=== PATIENT | female | born 1975 | race Two or more races ===

== ENCOUNTER 2022-09-28 02:07 | Emergency (ER) | payer MEDICAID ==
[~2022-09-28] VITALS: Ht 165.1 cm; Wt 61.4 kg
[2022-09-28] MEDS ORDERED: ONDANSETRON HCL 4 MG TABLET PO ONE (04:45)
[2022-09-28] MEDS ORDERED: ACETAMINOPHEN 500 MG TABLET PO ONE (04:45)
[2022-09-28] MEDS ORDERED: MAG HYDROX/AL HYDROX/SIMETH ES 30 ML SUSPENSION UDCUP PO ONE (04:45)
[2022-09-28 04:52] LABS: BASOPHILS % (AUTO) 0.4 % (0.0-2.0); EOSINOPHILS % (AUTO) 0.2 % (1.0-6.0); HEMATOCRIT 39.5 % (36-46); HEMOGLOBIN 12.9 g/dL (12.0-16.0); LYMPHOCYTES # (AUTO) 1.4 K/uL (1.0-4.8); LYMPHOCYTES % (AUTO) 13.2 % (22.0-44.0); MEAN CORPUSCULAR HEMOGLOBIN 26.9 pg (26.0-34.0); MEAN CORPUSCULAR HGB CONC 32.6 G/dL (31.0-37.0); MEAN CORPUSCULAR VOLUME 82 fL (80-100); MONOCYTES # (AUTO) 0.8 K/uL (0.1-1.0); MONOCYTES % (AUTO) 8.1 % (2.0-9.0); NEUTROPHILS % (AUTO) 78.1 % (40.0-70.0); PLATELET COUNT (AUTO) 249 K/uL (150-450); RED BLOOD CELL COUNT(AUTO) 4.79 MIL/uL (4.00-5.20)
[2022-09-28 05:03] LABS: ANION GAP 4 mmol/L (8-16); CALCIUM, TOTAL 9.3 mg/dL (8.8-10.5); CARBON DIOXIDE 30 mmol/L (22-29); CHLORIDE 104 mmol/L (98-107); CREATININE 0.67 mg/dL (0.60-1.30); GLUCOSE,RANDOM 114 mg/dL (70-110); POTASSIUM 4.1 mmol/L (3.5-5.1); SODIUM SERUM 138 mmol/L (136-145); UREA NITROGEN, BLOOD 13 mg/dL (7-18)
[2022-09-28 05:06] LABS: GLOMERULAR FILTR. RATE CALC > 60 mL/min (>60)
[2022-09-28 05:10] LABS: ALANINE AMINOTRANSFERASE 118 U/L (12-78); ALBUMIN 3.9 g/dL (3.4-5.0); ALKALINE PHOSPHATASE 103 U/L (46-116); ASPARTATE AMINOTRANSFERASE 195 U/L (15-37); BILIRUBIN,TOTAL 0.6 mg/dL (0.1-1.0); LIPASE 277 U/L (73-393); TOTAL PROTEIN, SERUM 7.6 g/dL (6.4-8.2)
[2022-09-28 07:42] VITALS: BP 103/58
[2022-09-28] MEDS ORDERED: MAG30ORA11 PO (08:04)
[2022-09-28] MEDS ORDERED: ONDA-104 PO (08:04)
[2022-09-28] MEDS ORDERED: ACET-66 PO (08:04)
== END 2022-09-28 08:48 | disposition home or self-care (01) ==
LOC: EMS 02:07
DX: R10.10 Upper abdominal pain, unspecified (principal); K21.9 Gastro-esophageal reflux disease without esophagitis; F41.9 Anxiety disorder, unspecified; K80.80 Other cholelithiasis without obstruction; Z87.440 Personal history of urinary (tract) infections
CPT/HCPCS: 99285; 76700; 80053; 83690; 84703; 85025; 36415; 93005; Q0162

== ENCOUNTER 2022-12-31 15:32 | Emergency (ER) | payer SELFPAY ==
[~2022-12-31] VITALS: Ht 160 cm; Wt 59.5 kg
[~2022-12-31 15:32] MED LIST: ACET-66 PO; MAG30ORA11 PO; ONDA-104 PO
[2022-12-31] MEDS ORDERED: BACL10TA PO (17:24)
[2022-12-31] MEDS ORDERED: IBUP-1492 PO (17:25)
[2022-12-31] MEDS ORDERED: BACLOFEN 10 MG TABLET PO ONE (17:30)
[2022-12-31] MEDS ORDERED: LIDOCAINE 5% TRANSDERMAL PATCH TD ONE (17:30)
[2022-12-31] MEDS ORDERED: IBUPROFEN 600 MG TABLET PO ONE (17:30)
[2022-12-31 18:05] VITALS: BP 132/82
== END 2022-12-31 18:30 | disposition home or self-care (01) ==
LOC: EMS 15:32
DX: M54.50 Low back pain, unspecified (principal); F41.9 Anxiety disorder, unspecified; V98.8XXA Other specified transport accidents, initial encounter; Y93.89 Activity, other specified; Y92.89 Other specified places as the place of occurrence of the external cause; Y99.8 Other external cause status
CPT/HCPCS: 99284; Z7502; Z7610

== ENCOUNTER 2023-04-22 00:02 | Emergency (ER) | payer MEDICAID, OTHER ==
[~2023-04-22] VITALS: Ht 162.6 cm; Wt 65.0 kg
[~2023-04-22 00:02] MED LIST changes: +BACL10TA PO; +IBUP-1492 PO
[2023-04-22] MEDS ORDERED: ONDANSETRON HCL 4 MG/2 ML VIAL IVP ONE (00:15)
[2023-04-22] MEDS ORDERED: MORPHINE SULFATE 2 MG/ML SYRINGE IVP ONE (00:15)
[2023-04-22] MEDS ORDERED: SODIUM CHLORIDE 0.9% 1,000 ML IV ONE (00:15)
[2023-04-22] MEDS ORDERED: FAMOTIDINE 10 MG/ML 2 ML VIAL IVP ONE (00:15)
[2023-04-22] MEDS ORDERED: MAG HYDROX/AL HYDROX/SIMETH 30 ML SUSP UDCUP PO ONE (00:15)
[2023-04-22 00:44] LABS: BASOPHILS % (AUTO) 0.3 % (0.0-2.0); EOSINOPHILS % (AUTO) 0.8 % (1.0-6.0); HEMATOCRIT 39.3 % (36-46); HEMOGLOBIN 12.6 g/dL (12.0-16.0); LYMPHOCYTES # (AUTO) 1.8 K/uL (1.0-4.8); LYMPHOCYTES % (AUTO) 12.5 % (22.0-44.0); MEAN CORPUSCULAR HEMOGLOBIN 26.7 pg (26.0-34.0); MEAN CORPUSCULAR VOLUME 84 fL (80-100); MONOCYTES # (AUTO) 0.9 K/uL (0.1-1.0); MONOCYTES % (AUTO) 6.3 % (2.0-9.0); NEUTROPHILS # (AUTO) 11.2 K/uL (1.8-7.7); NEUTROPHILS % (AUTO) 80.1 % (40.0-70.0); PLATELET COUNT (AUTO) 234 K/uL (150-450); RED CELL DISTRIBUTION WIDTH 14.4 % (11.5-14.5)
[2023-04-22 00:54] LABS: ANION GAP 11 mmol/L (8-16); CALCIUM, TOTAL 7.5 mg/dL (8.8-10.5); CARBON DIOXIDE 25 mmol/L (22-29); CHLORIDE 104 mmol/L (98-107); CREATININE 0.56 mg/dL (0.60-1.30); GLOMERULAR FILTR. RATE CALC > 60 mL/min (>60); GLUCOSE,RANDOM 105 mg/dL (70-110); SODIUM SERUM 140 mmol/L (136-145)
[2023-04-22 00:59] LABS: ALANINE AMINOTRANSFERASE 41 U/L (12-78); ALBUMIN 3.5 g/dL (3.4-5.0); ALKALINE PHOSPHATASE 83 U/L (46-116); ASPARTATE AMINOTRANSFERASE 58 U/L (15-37); BILIRUBIN,TOTAL 0.3 mg/dL (0.1-1.0); LIPASE 101 U/L (73-393); PHOSPHORUS 2.9 mg/dL (2.5-4.9); TOTAL PROTEIN, SERUM 6.9 g/dL (6.4-8.2)
[2023-04-22 01:01] LABS: LACTIC ACID 1.2 mmol/L (0.4-2.0)
[2023-04-22] MEDS ORDERED: SODIUM CHLORIDE 0.9% 100 ML ONE (01:20)
[2023-04-22] MEDS ORDERED: IOHEXOL 350 MG/ML 100 ML VIAL ONE (01:20)
[2023-04-22 03:37] LABS: APPEARANCE,URINE CLEAR (CLEAR); BILIRUBIN,URINE NEGATIVE (NEGATIVE); GLUCOSE, URINE (UA) NEGATIVE (NEGATIVE); KETONES,URINE NEGATIVE (NEGATIVE); LEUKOCYTE ESTERASE ,URINE NEGATIVE (NEGATIVE); NITRATE,URINE NEGATIVE (NEGATIVE); OCCULT BLOOD,URINE NEGATIVE (NEGATIVE); PH,URINE 6.5 (5.0-8.0); PROTEIN,URINE 30-70 mg/dL (NEGATIVE); UROBILINOGEN,URINE <=1.0 mg/dL (<=1.0)
[2023-04-22 04:48] VITALS: BP 104/61
== END 2023-04-22 05:12 | disposition home or self-care (01) ==
LOC: EMS 00:02
DX: K80.20 Calculus of gallbladder without cholecystitis without obstruction (principal); F41.9 Anxiety disorder, unspecified; Z87.442 Personal history of urinary calculi
CPT/HCPCS: 99285; 74177; 96374; 76705; 96375; 96361; 80053; 81003; 83605; 83690; 83735; 84100; 84484; 84703; 85025; 36415; 93005; J3490; J2270; J2405; Q9967; J7050

== ENCOUNTER 2023-05-29 00:25 | Emergency (ER) | payer MEDICAID ==
[~2023-05-29] VITALS: Ht 160 cm; Wt 61.0 kg
[2023-05-29 00:53] LABS: BASOPHILS % (AUTO) 0.5 % (0.0-2.0); EOSINOPHILS % (AUTO) 0.7 % (1.0-6.0); HEMATOCRIT 38.5 % (36-46); HEMOGLOBIN 12.7 g/dL (12.0-16.0); LYMPHOCYTES # (AUTO) 1.7 K/uL (1.0-4.8); LYMPHOCYTES % (AUTO) 12.6 % (22.0-44.0); MEAN CORPUSCULAR HGB CONC 32.9 G/dL (31.0-37.0); MEAN CORPUSCULAR VOLUME 82 fL (80-100); MONOCYTES # (AUTO) 0.8 K/uL (0.1-1.0); MONOCYTES % (AUTO) 5.8 % (2.0-9.0); NEUTROPHILS # (AUTO) 10.8 K/uL (1.8-7.7); NEUTROPHILS % (AUTO) 80.4 % (40.0-70.0); PLATELET COUNT (AUTO) 248 K/uL (150-450); RED BLOOD CELL COUNT(AUTO) 4.68 MIL/uL (4.00-5.20)
[2023-05-29 01:00] LABS: APPEARANCE,URINE CLEAR (CLEAR); BILIRUBIN,URINE NEGATIVE (NEGATIVE); GLUCOSE, URINE (UA) NEGATIVE (NEGATIVE); KETONES,URINE NEGATIVE (NEGATIVE); LEUKOCYTE ESTERASE ,URINE NEGATIVE (NEGATIVE); NITRATE,URINE NEGATIVE (NEGATIVE); OCCULT BLOOD,URINE NEGATIVE (NEGATIVE); PH,URINE 5.5 (5.0-8.0); PROTEIN,URINE NEGATIVE (NEGATIVE); SPECIFIC GRAVITIY, URINE 1.022 (1.003-1.030); UROBILINOGEN,URINE <=1.0 mg/dL (<=1.0)
[2023-05-29 01:06] LABS: ANION GAP 7 mmol/L (8-16); CALCIUM, TOTAL 9.4 mg/dL (8.8-10.5); CARBON DIOXIDE 30 mmol/L (22-29); CHLORIDE 100 mmol/L (98-107); CREATININE 0.69 mg/dL (0.60-1.30); GLOMERULAR FILTR. RATE CALC > 60 mL/min (>60); GLUCOSE,RANDOM 134 mg/dL (70-110); POTASSIUM 3.8 mmol/L (3.5-5.1); SODIUM SERUM 137 mmol/L (136-145)
[2023-05-29 01:18] LABS: ALANINE AMINOTRANSFERASE 52 U/L (12-78); ALBUMIN 3.9 g/dL (3.4-5.0); ALKALINE PHOSPHATASE 103 U/L (46-116); ASPARTATE AMINOTRANSFERASE 83 U/L (15-37); BILIRUBIN,TOTAL 0.5 mg/dL (0.1-1.0); HCG,QUANTITATIVE < 1 mIU/mL (0-6); LIPASE 133 U/L (73-393); TOTAL PROTEIN, SERUM 7.6 g/dL (6.4-8.2)
[2023-05-29 02:30] VITALS: TEMP 97.3
[2023-05-29] MEDS ORDERED: FAMOTIDINE 20 MG/2 ML VIAL IVP ONE (02:45)
[2023-05-29] MEDS ORDERED: HYDROmorphone HCL 2 MG/ML SYRINGE IVP ONE (02:45)
[2023-05-29] MEDS ORDERED: SODIUM CHLORIDE 0.9% 1,000 ML IV ONE (02:45)
[2023-05-29] MEDS ORDERED: PIPERACILLIN/TAZO 3.375 GM/D5W 50 ML IV ONE (06:00)
[2023-05-29 10:07] VITALS: BP 112/70; PULSE 62; RESP 14
== END 2023-05-29 11:39 | disposition home or self-care (01) ==
LOC: EMS 00:26
DX: K80.20 Calculus of gallbladder without cholecystitis without obstruction (principal); K80.50 Calculus of bile duct without cholangitis or cholecystitis without obstruction; F41.9 Anxiety disorder, unspecified; Z98.890 Other specified postprocedural states
CPT/HCPCS: 99285; 74176; 96365; 76700; 96375; 96361; 80053; 81003; 83690; 84702; 85025; 87040; 36415; J3490; J1170; J2543; J7030

== ENCOUNTER 2024-08-02 21:25 | Emergency (ER) | payer MEDICAID, OTHER ==
[~2024-08-02] VITALS: Ht 160 cm; Wt 61.4 kg
[~2024-08-02 21:25] MED LIST changes: -ACET-66 PO; -BACL10TA PO; -IBUP-1492 PO; -ONDA-104 PO
[2024-08-02 21:41] VITALS: BP 151/88; PULSE 76; RESP 20; TEMP 98.6; O2SAT 97
== END 2024-08-02 22:54 | disposition home or self-care (01) ==
LOC: EMS 21:25
DX: T16.2XXA Foreign body in left ear, initial encounter (principal); F41.9 Anxiety disorder, unspecified; Z98.890 Other specified postprocedural states; W44.F4XA Insect entering into or through a natural orifice, initial encounter; Y93.89 Activity, other specified; Y92.89 Other specified places as the place of occurrence of the external cause; Y99.8 Other external cause status
CPT/HCPCS: 69200; 99284; Z7502